=== PATIENT | female | born 1935 | race Caucasian/White ===

== ENCOUNTER 2016-09-12 10:47 | Emergency (ER) | payer MEDICARE, BC ==
[~2016-09-12 10:47] MED LIST: ALDACTONE25 MG PO; ALEVE; ALEVE220 MG; AMIODIPINE; ASPIR-LOW81 MG PO; ASPIR-TRIN325 M1 PO; ASPIRIN EC81 MG PO; ASPIRIN325 MG; ASPIRIN325 MG PO; ATENOLOL25 MG; ATENOLOL25 MG PO; CALCIUM + D T1 UDTAB; CALCIUM 600 +1 EAC2 PO; CALCIUM PO; CARISOPRODOL; CARVEDILOL6.25 MG PO; CELEXA20 M1 PO; COZAAR100 MG PO; DIOVAN160 M PO; DIOVAN160 MG; DITROPAN5 MG PO; FAMOTIDINE20 MG; FISH OIL1 CAP; FOLIC ACID PO; FOSAMAX70 MG; FUROSEMIDE80 M1 PO; FUROSEMIDE80 MG; FUROSEMIDE80 MG PO; GLUCOSAMINE SUL; HEART PILL; HYDROCODONE/APA1 TAB PO; IBUPROFEN800 MG PO; IMDUR30 MG PO; ISOSORBIDE PO; K-DUR10 ME1 PO; K-DUR10 MEQ PO; KAON-CL 1010 MEQ PO; LEVOTHROID100 MCG PO; LEVOXYL100 MCG PO; LEXAPRO10 MG; LEXAPRO10 MG PO; LIPITOR20 MG; MAGNESI PO; MAGNESIUM; MAGNESIUM PO; MAGNESIUM500 M1 PO; MULTIVITAMIN; NIACIN PO; NITROQUICK0.4 MG SL; NORCO 10/3251 TA1 PO; NORCO 5-325 TA1 EACH PO; NORVASC5 MG PO; OMEGA 31 CAP PO; OMEPRAZOLE20 M2 PO; OMEPRAZOLE20 M3 PO; POTASSIUM; POTASSIUM CHLO10 MEQ; RANEXA PO; RELAFEN; SIMVASTATIN40 MG PO; SOMA350 MG; SYNTHROID100 MCG; SYNTHROID100 MCG PO; TRAMADOL HCL50 MG PO; TRAMADOL PO; TYLENOL325 MG PO; TYLENOL500 MG PO; VITAMIN B COMPLEX; VITAMIN D PO; ZOCOR40 MG PO; ZYRTEC10 MG; [UNRECOGNIZED DRUG - OTHER] PO; [UNRECOGNIZED DRUG - OTHER] PO; [UNRECOGNIZED DRUG - OTHER] PO; [UNRECOGNIZED DRUG - REMARK]
== END 2016-09-12 14:06 ==
LOC: EDMED 10:47
DX: H61.21 Impacted cerumen, right ear (principal); I10 Essential (primary) hypertension; E78.5 Hyperlipidemia, unspecified; E03.9 Hypothyroidism, unspecified; G47.30 Sleep apnea, unspecified; Z79.82 Long term (current) use of aspirin; Z79.899 Other long term (current) drug therapy